=== PATIENT | female | born 1940 | race Two or more races ===

== ENCOUNTER 2024-07-07 18:03 | Inpatient (IN) | payer OTHER ==
[~2024-07-07] VITALS: Ht 157.5 cm; Wt 77.1 kg
--- NOTE | 2024-07-07 18:54 | NUR ---
SE LLAMA PACIENTE Y LA MISMA NO CONTESTA
--- NOTE | 2024-07-07 19:06 | NUR ---
HIJO REFIERE QUE LA PACIENTE LLEVA DEBIL DE LAS PIERNAS DESDE [place]
[2024-07-07] MEDS ORDERED: MEMANTINE HCL10 MG PO (19:07)
[2024-07-07] MEDS ORDERED: ATORVASTATIN CA20 MG PO (19:07)
[2024-07-07] MEDS ORDERED: FOLIC ACID1 MG PO (19:07)
[2024-07-07] MEDS ORDERED: GLIPIZIDE10 MG PO (19:07)
[2024-07-07] MEDS ORDERED: METFORMIN HCL1000 M3 PO (19:08)
[2024-07-07] MEDS ORDERED: LEVOTHYROXINE88 MCG PO (19:08)
[2024-07-07] MEDS ORDERED: FUROsemide 40 MG/4 ML VIAL IV ONE (19:30)
[2024-07-07] MEDS ORDERED: LEVALBUTEROL HCL 1.25 MG/3 ML SOLUTION IH SCH (19:45)
[2024-07-07] MEDS ORDERED: IPRATROPIUM BROMIDE 0.5 MG/2.5 ML AMPUL.NEB IH SCH (19:45)
[2024-07-07] MEDS ORDERED: FAMOTIDINE/PF 20 MG in 0.9 % SODIUM CHLORIDE 8 ML IV PUSH ONE (19:45)
--- NOTE | 2024-07-07 20:33 | NUR ---
PACIENTE ALERTA Y ORIENTADA X3 EN COMPANIA DE FAMILIAR. SE EDUCA A FAMILIAR Y A PACIENTE SOBRE PROCESO DE DEISI DE MUESTRAS, CANALIZACION Y ADMINISTRACION DE MEDICAMENTOS, REFIERE ENTENDER. SE EJECUTAN ORDENES BAJO MEDIDAS ASEPTICAS.
[2024-07-07 20:41] LABS: HEMATOCRIT 32.4 % (36.0-45.00); HEMOGLOBIN 11.1 g/dL (12.0-15.00); MEAN CORPUSCULAR HEMOGLOBIN 27.8 pg (27.00-32.0); MEAN CORPUSCULAR HGB CONC 34.4 g/dl (32.0-36.0); PLATELET COUNT 241 K/uL (150-450); RED CELL DISTRIBUTION WIDTH 15.8 % (11.5-14.5)
[2024-07-07] MEDS ORDERED: IPRATROPIUM BROMIDE 0.5 MG/2.5 ML AMPUL.NEB IH ONE (20:55)
[2024-07-07] MEDS ORDERED: LEVALBUTEROL HCL 1.25 MG/3 ML SOLUTION IH ONE (20:55)
[2024-07-07 21:08] LABS: BILIRUBIN TOTAL 0.47 mg/dL (0.3-1.2); CALCIUM 9.1 mg/dL (8.5-10.1); CREATININE SERUM 0.66 mg/dL (0.55-1.02); GFR 85.12; GLOBULINA 4.8 G/DL (2.4-3.5); POTASSIUM 3.31 mEq/L (3.5-5.1); TOTAL PROTEIN 7.8 gm/dL (6.4-8.2)
[2024-07-07] MEDS ORDERED: FUROsemide 40 MG/4 ML VIAL ONE (21:20)
[2024-07-07] MEDS ORDERED: FAMOTIDINE/PF 20 MG/2 ML VIAL ONE (21:20)
[2024-07-07 21:28] LABS: ABG pCO2 34.6 mmHg (35-45); BASE EXCESS 3.5 mmol/l; BICARBONATE 26.4 mmol/l (23-25); SaO2 92.6 %; Tco2 27.4 mmol/l
[2024-07-07 21:29] LABS: ABG PO2 58.2 mmHg (80-100); allen test SATISFACTORY; o2 32 %; puncture site RADIAL LEFT
[2024-07-07 21:32] LABS: URINE APPEARANCE Cloudy; URINE BILIRRUBIN Negative (NEGATIVE); URINE BLOOD Trace; URINE COLOR Yellow; URINE KETONE Negative (NEGATIVE); URINE LEUKOCYTE Small; URINE NITRATE Negative; URINE UROBILINOGEN 0.2 E.U./dl
[2024-07-07 21:36] LABS: URINE EPITHELIAL CELLS 6.3 uL (0.0-38.8); URINE RBC 9.5 uL (0.0-20.8); URINE WBC 1030.3 uL (0.0-23.2)
[2024-07-07 22:00] LABS: URINE BACTERIA > 9821.5 uL (0.0-1933); URINE CAST 0.58 uL (0.0-1.40); URINE GLUCOSE >=1000 MG/DL (NEGATIVE); URINE PROTEIN 100 (NEGATIVE)
[2024-07-07 22:03] LABS: URINE YEAST FEW /hpf
[2024-07-07 22:05] LABS: D DIMER 2.42 MG/L; PARTIAL THROMBOPLASTIN TIME 30.2 SECONDS (22.0-34.0)
[2024-07-07 22:08] LABS: INR 1.15; PROTHROMBIN TIME 12.4 SECONDS (9.0-11.5)
[2024-07-07] MEDS ORDERED: LORazepam 1 MG TABLET PO ONE (23:30)
[2024-07-07] MEDS ORDERED: LORazepam 2 MG/ML VIAL IV ONE (23:50)
[2024-07-07] MEDS ORDERED: LORazepam 2 MG/ML DISP.SYRIN ONE (23:56)
[2024-07-08] MEDS ORDERED: IPRATROPIUM BROMIDE 0.5 MG/2.5 ML AMPUL.NEB IH SCH (01:19)
[2024-07-08] MEDS ORDERED: CEFTRIAXONE SODIUM 2,000 MG in 0.9 % SODIUM CHLORIDE 100 ML IV SCH (01:21)
[2024-07-08] MEDS ORDERED: AZITHROMYCIN 500 MG in DEXTROSE 5 % IN WATER 250 ML IV SCH (01:21)
[2024-07-08] MEDS ORDERED: 0.9 % SODIUM CHLORIDE 1,000 ML IV SCH (01:30)
[2024-07-08] MEDS ORDERED: METHYLPREDNISOLONE SOD SUCC 125 MG VIAL IV ONE (01:30)
[2024-07-08] MEDS ORDERED: ACETAMINOPHEN 500 MG GEL..CAP PO PRN (01:30)
[2024-07-08] MEDS ORDERED: DEXTROSE 50 % IN WATER 0.5 G/ML DISP.SYRIN IV PRN (01:30)
[2024-07-08] MEDS ORDERED: INSULIN LISPRO 1,000 UNIT/10 ML UNITS SUBCUTANEO PRN (01:30)
[2024-07-08] MEDS ORDERED: LEVALBUTEROL HCL 1.25 MG/3 ML SOLUTION IH SCH (02:00)
[2024-07-08] MEDS ORDERED: CEFTRIAXONE SODIUM 2,000 MG VIAL ONE (04:35)
[2024-07-08] MEDS ORDERED: AZITHROMYCIN 500 MG VIAL IV ONE (04:35)
[2024-07-08] MEDS ORDERED: METHYLPREDNISOLONE SOD SUCC 40 MG VIAL ONE (04:35)
[2024-07-08] MEDS ORDERED: LEVOTHYROXINE SODIUM 88 MCG TABLET PO SCH (06:00)
[2024-07-08 08:00] VITALS: BP 145/80; O2SAT 91
[2024-07-08] MEDS ORDERED: HALOPERIDOL LACTATE 5 MG/ML AMPUL IM PRN (08:00)
[2024-07-08] MEDS ORDERED: METOPROLOL SUCCINATE 25 MG TAB.SR.24H PO SCH (09:00)
[2024-07-08] MEDS ORDERED: FUROsemide 20 MG/2 ML VIAL IV SCH (09:00)
[2024-07-08] MEDS ORDERED: LOSARTAN POTASSIUM 50 MG TABLET PO SCH (09:00)
[2024-07-08] MEDS ORDERED: ENOXAPARIN SODIUM 40 MG/0.4 ML SYRINGE SUBCUTANEO SCH (09:00)
[2024-07-08 09:32] VITALS: O2SAT 93
[2024-07-08 16:46] VITALS: O2SAT 90
[2024-07-08] MEDS ORDERED: SIMVASTATIN 20 MG TABLET PO SCH (17:00)
[2024-07-08 17:11] VITALS: BP 156/74
[2024-07-08 20:36] VITALS: O2SAT 90
[2024-07-09] VITALS (7 sets, daily range): BP systolic 167–187; BP diastolic 75–90; O2SAT 90–96
[2024-07-09] MEDS ORDERED: INSULIN NPH HUMAN ISOPHANE 1,000 UNITS/10 ML UNITS SUBCUTANEO SCH (08:00)
[2024-07-09 08:38] LABS: HEMATOCRIT 33.6 % (36.0-45.00); HEMOGLOBIN 11.7 g/dL (12.0-15.00); MEAN CELL VOLUME 80.6 fL (80.00-100.00); MEAN CORPUSCULAR HEMOGLOBIN 28.1 pg (27.00-32.0); MEAN CORPUSCULAR HGB CONC 34.9 g/dl (32.0-36.0); PLATELET COUNT 275 K/uL (150-450); RED BLOOD COUNT 4.17 M/uL (4.00-6.00); RED CELL DISTRIBUTION WIDTH 15.6 % (11.5-14.5)
[2024-07-09] MEDS ORDERED: AZITHROMYCIN 500 MG in 0.9 % SODIUM CHLORIDE 250 ML IV SCH (09:00)
[2024-07-09 09:19] LABS: ALBUMIN 2.8 gm/dL (3.4-5.0); BILIRUBIN TOTAL 0.42 mg/dL (0.3-1.2); CALCIUM 8.9 mg/dL (8.5-10.1); CREATININE SERUM 0.58 mg/dL (0.55-1.02); GFR 98.8; GLOBULINA 4.5 G/DL (2.4-3.5); PHOSPHOROUS 2.7 mg/dL (2.5-4.9); POTASSIUM 3.18 mEq/L (3.5-5.1); TOTAL PROTEIN 7.3 gm/dL (6.4-8.2)
[2024-07-09 09:31] LABS: C-REACTIVE PROTEIN 10.7 MG/DL (0.00-0.29); MAGNESIUM 1.4 mg/dL (1.8-2.4)
[2024-07-09] MEDS ORDERED: INSULIN NPH HUMAN ISOPHANE 1,000 UNITS/10 ML UNITS SUBCUTANEO STA (21:13)
[2024-07-09] MEDS ORDERED: INSULIN NPH HUMAN ISOPHANE 1,000 UNITS/10 ML UNITS SUBCUTANEO ONE (21:16)
[2024-07-10] VITALS (10 sets, daily range): BP systolic 160–185; BP diastolic 70–90; O2SAT 90–96
[2024-07-10] MEDS ORDERED: INSULIN LISPRO 1,000 UNIT/10 ML UNITS SUBCUTANEO SCH (08:00)
[2024-07-10] MEDS ORDERED: INSULIN GLARGINE,HUM.REC.ANLOG 1,000 UNITS/10 ML UNITS SUBCUTANEO SCH (09:00)
[2024-07-10] MEDS ORDERED: LOSARTAN POTASSIUM 100 MG TABLET PO SCH (09:00)
[2024-07-10 09:43] LABS: ABG PH 7.501 (7.35-7.45); ABG pCO2 41.3 mmHg (35-45)
[2024-07-10 09:44] LABS: ABG PO2 47.4 mmHg (80-100); BASE EXCESS 7.6 mmol/l; BICARBONATE 31.5 mmol/l (23-25); SaO2 87.8 %; Tco2 32.8 mmol/l; allen test SATISFACTORY; o2 21 %; puncture site RADIAL LEFT
[2024-07-10] MEDS ORDERED: AZITHROMYCIN 500 MG VIAL IV SCH (12:00)
[2024-07-10 12:33] LABS: URINE APPEARANCE Clear; URINE BILIRRUBIN Negative (NEGATIVE); URINE BLOOD Large; URINE COLOR Yellow; URINE GLUCOSE Negative (NEGATIVE); URINE KETONE Negative (NEGATIVE); URINE LEUKOCYTE Negative; URINE NITRATE Negative; URINE UROBILINOGEN 0.2 E.U./dl
[2024-07-10 12:34] LABS: URINE BACTERIA 34.2 uL (0.0-1933); URINE EPITHELIAL CELLS 11.2 uL (0.0-38.8); URINE RBC 1291.2 uL (0.0-20.8); URINE WBC 38.4 uL (0.0-23.2)
[2024-07-10 12:35] LABS: URINE CAST 1.17 uL (0.0-1.40); URINE PROTEIN 300 (NEGATIVE)
[2024-07-10] MEDS ORDERED: AZITHROMYCIN 500 MG VIAL IV ONE (12:59)
[2024-07-10] MEDS ORDERED: ENALAPRILAT DIHYDRATE 2.5 MG/2 ML VIAL IV PRN (22:15)
[2024-07-10] MEDS ORDERED: ENALAPRILAT DIHYDRATE 1.25 MG/ML VIAL IV ONE (22:18)
[2024-07-11] VITALS (11 sets, daily range): BP systolic 160–190; BP diastolic 80–89; O2SAT 90–100
[2024-07-11] MEDS ORDERED: FUROsemide 20 MG/2 ML VIAL IV STA (07:33)
[2024-07-11] MEDS ORDERED: INSULIN GLARGINE,HUM.REC.ANLOG 1,000 UNITS/10 ML UNITS SUBCUTANEO SCH (09:00)
[2024-07-11] MEDS ORDERED: AMLODIPINE BESYLATE 5 MG TABLET PO SCH (09:00)
[2024-07-11] MEDS ORDERED: ENALAPRILAT DIHYDRATE 1.25 MG/ML VIAL IV PRN (10:30)
[2024-07-11] MEDS ORDERED: INSULIN LISPRO 1,000 UNIT/10 ML UNITS SUBCUTANEO SCH (12:00)
[2024-07-11] MEDS ORDERED: AZITHROMYCIN 500 MG VIAL IV ONE (12:57)
[2024-07-11 13:33] LABS: ABG PH 7.473 (7.35-7.45); ABG PO2 102.1 mmHg (80-100); ABG pCO2 41.2 mmHg (35-45); BASE EXCESS 5.4 mmol/l; BICARBONATE 29.5 mmol/l (23-25); SaO2 98.3 %; Tco2 30.7 mmol/l
[2024-07-11 13:34] LABS: allen test SATISFACTORY; o2 100 %; puncture site RADIAL LEFT
[2024-07-11] MEDS ORDERED: PIPERACILLIN/TAZOBACTAM SODIUM 3.375 GM in DEXTROSE 5 % IN WATER 100 ML IV SCH (18:00)
[2024-07-12] VITALS (11 sets, daily range): BP systolic 140–186; BP diastolic 60–82; O2SAT 90–100
[2024-07-12 06:36] LABS: HEMATOCRIT 34.4 % (36.0-45.00); HEMOGLOBIN 11.7 g/dL (12.0-15.00); MEAN CELL VOLUME 81.9 fL (80.00-100.00); MEAN CORPUSCULAR HEMOGLOBIN 27.8 pg (27.00-32.0); MEAN CORPUSCULAR HGB CONC 33.9 g/dl (32.0-36.0); PLATELET COUNT 302 K/uL (150-450); RED CELL DISTRIBUTION WIDTH 15.7 % (11.5-14.5)
[2024-07-12 07:09] LABS: ALBUMIN 2.6 gm/dL (3.4-5.0); ALKALINE PHOSPHATASE 74 U/L (50-136); ALT/SGPT 13 U/L (12-78); AST/SGOT 10 U/L (15-37); BILIRUBIN TOTAL 0.55 mg/dL (0.3-1.2); BLOOD UREA NITROGEN 34 mg/dL (7-18); BUN CREA RATIO 50 (7.0-25.0); CALCIUM 8.3 mg/dL (8.5-10.1); CARBON DIOXIDE 32 mEq/L (21-32); CHLORIDE 99 mmol/L (98-107); CREATININE SERUM 0.68 mg/dL (0.55-1.02); GFR 82.23; GLOBULINA 3.9 G/DL (2.4-3.5); GLUCOSE FASTING 191 mg/dL (65-100); OSMOLALITY SERUM 294 MOSM/KG (275-295); PHOSPHOKINASE CREATININE 35 U/L (26-192); PHOSPHOROUS 4.1 mg/dL (2.5-4.9); SODIUM 141 mmol/L (136-145); TOTAL PROTEIN 6.5 gm/dL (6.4-8.2)
[2024-07-12 08:41] LABS: ANION GAP 13 (10.0-20.0)
[2024-07-12 08:42] LABS: CKMB < 1.0 NG/ML (0.5-3.6); POTASSIUM 2.63 mEq/L (3.5-5.1)
[2024-07-12] MEDS ORDERED: AMLODIPINE BESYLATE 10 MG TABLET PO SCH (09:00)
[2024-07-12] MEDS ORDERED: POTASSIUM CHLORIDE IN WATER 40 MEQ/100 ML PIGGYBAG IV ONE (11:15)
[2024-07-12 15:58] LABS: CALCIUM 8.5 mg/dL (8.5-10.1); CHOL HDL RATIO 3.3 (0-5.0); CREATININE SERUM 0.58 mg/dL (0.55-1.02); GFR 98.8
[2024-07-12 15:59] LABS: POTASSIUM 2.97 mEq/L (3.5-5.1)
[2024-07-12] MEDS ORDERED: AA 4.25%/CAL/LYTES/DEXT 5% 1,000 ML PERIFERAL SCH (21:00)
[2024-07-13] VITALS (10 sets, daily range): BP systolic 140–150; BP diastolic 66–80; O2SAT 87–99
[2024-07-13] MEDS ORDERED: AZITHROMYCIN 500 MG VIAL IV ONE (06:28)
[2024-07-14] VITALS (10 sets, daily range): BP systolic 140–171; BP diastolic 70–82; O2SAT 91–99
[2024-07-14] MEDS ORDERED: AZITHROMYCIN 500 MG VIAL IV ONE (06:25)
[2024-07-14 07:56] LABS: HEMATOCRIT 29.4 % (36.0-45.00); MEAN CELL VOLUME 82.4 fL (80.00-100.00); MEAN CORPUSCULAR HEMOGLOBIN 28.1 pg (27.00-32.0); MEAN CORPUSCULAR HGB CONC 34.1 g/dl (32.0-36.0); PLATELET COUNT 313 K/uL (150-450); RED BLOOD COUNT 3.56 M/uL (4.00-6.00)
[2024-07-14 09:50] LABS: ABG PH 7.476 (7.35-7.45); ABG PO2 112.5 mmHg (80-100); ABG pCO2 49.4 mmHg (35-45); BASE EXCESS 10.3 mmol/l; BICARBONATE 35.6 mmol/l (23-25); SaO2 98.8 %; Tco2 37.1 mmol/l
[2024-07-14 09:51] LABS: allen test SATISFACTORY; o2 50 %; puncture site RADIAL RIGHT
[2024-07-14] MEDS ORDERED: hydrALAZINE HCL 50 MG TABLET PO SCH (11:14)
[2024-07-14] MEDS ORDERED: INSULIN NPH HUMAN ISOPHANE 1,000 UNITS/10 ML UNITS SUBCUTANEO STA (14:31)
[2024-07-14] MEDS ORDERED: INSULIN NPH HUMAN ISOPHANE 1,000 UNITS/10 ML UNITS SUBCUTANEO SCH (21:00)
[2024-07-15] VITALS (10 sets, daily range): BP systolic 136–160; BP diastolic 71–84; O2SAT 91–100
[2024-07-15] MEDS ORDERED: AZITHROMYCIN 500 MG VIAL IV ONE (07:31)
[2024-07-15] MEDS ORDERED: hydrALAZINE HCL 50 MG TABLET PO SCH (09:00)
[2024-07-15 11:58] LABS: HEMATOCRIT 34.2 % (36.0-45.00); HEMOGLOBIN 11.6 g/dL (12.0-15.00); MEAN CELL VOLUME 81.1 fL (80.00-100.00); MEAN CORPUSCULAR HEMOGLOBIN 27.4 pg (27.00-32.0); MEAN CORPUSCULAR HGB CONC 33.7 g/dl (32.0-36.0); PLATELET COUNT 394 K/uL (150-450); RED BLOOD COUNT 4.22 M/uL (4.00-6.00); RED CELL DISTRIBUTION WIDTH 15.8 % (11.5-14.5)
[2024-07-15 12:46] LABS: CALCIUM 9.2 mg/dL (8.5-10.1); CREATININE SERUM 0.44 mg/dL (0.55-1.02); GFR 135.9; POTASSIUM 3.14 mEq/L (3.5-5.1)
[2024-07-15] MEDS ORDERED: INSULIN NPH HUMAN ISOPHANE 1,000 UNITS/10 ML UNITS SUBCUTANEO SCH (13:00)
[2024-07-16] VITALS (8 sets, daily range): BP systolic 134–150; BP diastolic 73–92; O2SAT 90–98
[2024-07-16] MEDS ORDERED: INSULIN NPH HUMAN ISOPHANE 1,000 UNITS/10 ML UNITS SUBCUTANEO SCH (05:00)
[2024-07-16] MEDS ORDERED: AZITHROMYCIN 500 MG VIAL IV ONE (07:44)
[2024-07-16] MEDS ORDERED: POTASSIUM CHLORIDE 20MEQ/100ML H2O PB IV NR (08:00)
[2024-07-16 11:37] LABS: ABG PH 7.486 (7.35-7.45); ABG pCO2 44.1 mmHg (35-45); BASE EXCESS 8.1 mmol/l; BICARBONATE 32.6 mmol/l (23-25); SaO2 92.7 %; Tco2 33.9 mmol/l
[2024-07-16 11:38] LABS: allen test SATISFACTORY; o2 21 %; puncture site RADIAL LEFT
[2024-07-17 00:18] VITALS: O2SAT 94
[2024-07-17 00:45] VITALS: BP 120/71; O2SAT 94
[2024-07-17 06:15] VITALS: O2SAT 96
[2024-07-17 08:00] VITALS: BP 143/76; O2SAT 100
[2024-07-17 10:02] VITALS: O2SAT 95
[2024-07-17 16:00] VITALS: BP 134/80; O2SAT 93
[2024-07-18] VITALS: BP 145/83; O2SAT 98
[2024-07-18] MEDS ORDERED: POTASSIUM CHLORIDE 10 MEQ CAPSULE PO STA (07:50)
[2024-07-18] MEDS ORDERED: INSULIN GLARGINE,HUM.REC.ANLOG 1,000 UNITS/10 ML UNITS SUBCUTANEO STA (09:33)
[2024-07-19] MEDS ORDERED: INSULIN GLARGINE,HUM.REC.ANLOG 1,000 UNITS/10 ML UNITS SUBCUTANEO SCH (09:00)
[2024-07-22 13:37] LABS: ABG PO2 58.4 mmHg (80-100)
== END 2024-07-18 13:35 | disposition home or self-care (01) | DRG 193 ==
LOC: ER 18:06 → MEDJ 07-08 01:25 → SURG 07-08 01:25 → MEDJ 07-08 14:48 → SURG 07-12 14:23 → SURH 07-12 14:38 → SURG 07-12 14:45
PROVIDERS: General Practice; Internal Medicine; Internal Medicine Infectious Disease; ADMIT Internal Medicine; ATTEND Internal Medicine
PROC: 5A0945A Assistance with Respiratory Ventilation, 24-96 Consecutive Hours, High Flow/Velocity Cannula (ICD-10-PCS; principal; 2024-07-07)
PROC: B020ZZZ Computerized Tomography (CT Scan) of Brain (ICD-10-PCS; 2024-07-07)
PROC: B32TZZZ Computerized Tomography (CT Scan) of Left Pulmonary Artery (ICD-10-PCS; 2024-07-07)
PROC: B32SZZZ Computerized Tomography (CT Scan) of Right Pulmonary Artery (ICD-10-PCS; 2024-07-07)
PROC: 4A12X4Z Monitoring of Cardiac Electrical Activity, External Approach (ICD-10-PCS; 2024-07-08)
PROC: B246ZZZ Ultrasonography of Right and Left Heart (ICD-10-PCS; 2024-07-08)
PROC: 3E0F7GC Introduction of Other Therapeutic Substance into Respiratory Tract, Via Natural or Artificial Opening (ICD-10-PCS; 2024-07-08)
PROC: BB24YZZ Computerized Tomography (CT Scan) of Bilateral Lungs using Other Contrast (ICD-10-PCS; 2024-07-11)
PROC: 3E0336Z Introduction of Nutritional Substance into Peripheral Vein, Percutaneous Approach (ICD-10-PCS; 2024-07-11)
PROC: 02HV33Z Insertion of Infusion Device into Superior Vena Cava, Percutaneous Approach (ICD-10-PCS; 2024-07-15)
PROC: 3E0436Z Introduction of Nutritional Substance into Central Vein, Percutaneous Approach (ICD-10-PCS; 2024-07-15)
PROC: 3E04329 Introduction of Other Anti-infective into Central Vein, Percutaneous Approach (ICD-10-PCS; 2024-07-15)
DX: J18.0 Bronchopneumonia, unspecified organism (principal); I50.33 Acute on chronic diastolic (congestive) heart failure; J96.01 Acute respiratory failure with hypoxia; E87.3 Alkalosis; I67.89 Other cerebrovascular disease; F02.811 Dementia in other diseases classified elsewhere, unspecified severity, with agitation; F05 Delirium due to known physiological condition; F01.511 Vascular dementia, unspecified severity, with agitation; I67.4 Hypertensive encephalopathy; J98.11 Atelectasis; G30.1 Alzheimer's disease with late onset; I11.0 Hypertensive heart disease with heart failure; E11.65 Type 2 diabetes mellitus with hyperglycemia; E87.6 Hypokalemia; G47.33 Obstructive sleep apnea (adult) (pediatric); E78.5 Hyperlipidemia, unspecified; E03.9 Hypothyroidism, unspecified; Z79.84 Long term (current) use of oral hypoglycemic drugs; Z95.0 Presence of cardiac pacemaker

== ENCOUNTER 2024-07-19 00:19 | Inpatient (IN) | payer OTHER ==
[~2024-07-19] VITALS: Ht 157.5 cm; Wt 284.9 kg
[~2024-07-19 00:19] MED LIST: ATORVASTATIN CA20 MG PO; FOLIC ACID1 MG PO; GLIPIZIDE10 MG PO; LEVOTHYROXINE88 MCG PO; MEMANTINE HCL10 MG PO; METFORMIN HCL1000 M3 PO
[2024-07-19] MEDS ORDERED: 0.9 % SODIUM CHLORIDE 1,000 ML IV STA (01:51)
[2024-07-19 02:20] LABS: HEMATOCRIT 32.1 % (36.0-45.00); HEMOGLOBIN 10.9 g/dL (12.0-15.00); MEAN CELL VOLUME 81.5 fL (80.00-100.00); MEAN CORPUSCULAR HEMOGLOBIN 27.7 pg (27.00-32.0); PLATELET COUNT 293 K/uL (150-450); RED BLOOD COUNT 3.94 M/uL (4.00-6.00); RED CELL DISTRIBUTION WIDTH 15.8 % (11.5-14.5)
[2024-07-19 02:27] LABS: ERYTHROCYTE SEDIMENTATION RATE 88 mm/hr
[2024-07-19 02:47] LABS: INR 1.13; PARTIAL THROMBOPLASTIN TIME 26.9 SECONDS (22.0-34.0); PROTHROMBIN TIME 12.2 SECONDS (9.0-11.5)
[2024-07-19 02:51] LABS: ALBUMIN 2.9 gm/dL (3.4-5.0); BILIRUBIN TOTAL 0.33 mg/dL (0.3-1.2); CREATININE SERUM 0.63 mg/dL (0.55-1.02); GFR 89.81; POTASSIUM 3.26 mEq/L (3.5-5.1); TOTAL PROTEIN 6.9 gm/dL (6.4-8.2)
[2024-07-19 02:53] LABS: ABG PH 7.483 (7.35-7.45); ABG pCO2 44.1 mmHg (35-45); BASE EXCESS 7.8 mmol/l; BICARBONATE 32.3 mmol/l (23-25); SaO2 91.5 %; Tco2 33.6 mmol/l
[2024-07-19 02:56] LABS: ABG PO2 55.6 mmHg (80-100); allen test SATISFACTORY; o2 21 %; puncture site RADIAL RIGHT
[2024-07-19 04:20] LABS: PH,URINE 6.5 (5.0-8.0); URINE APPEARANCE Clear; URINE BILIRRUBIN Negative (NEGATIVE); URINE BLOOD Negative; URINE COLOR Yellow; URINE KETONE Negative (NEGATIVE); URINE LEUKOCYTE Trace; URINE NITRATE Negative; URINE PROTEIN 30 (NEGATIVE); URINE UROBILINOGEN 0.2 E.U./dl
[2024-07-19 04:24] LABS: URINE BACTERIA 90.5 uL (0.0-1933); URINE EPITHELIAL CELLS 19.6 uL (0.0-38.8); URINE WBC 149.7 uL (0.0-23.2)
[2024-07-19 04:41] LABS: URINE CAST 0.29 uL (0.0-1.40); URINE GLUCOSE >=1000 MG/DL (NEGATIVE)
[2024-07-19] MEDS ORDERED: LOSARTAN POTASSIUM 50 MG TABLET PO SCH (13:49)
[2024-07-19] MEDS ORDERED: LEVOTHYROXINE SODIUM 88 MCG TABLET PO ONE (14:00)
[2024-07-19] MEDS ORDERED: LABETALOL HCL 200 MG/40 ML VIAL IV ONE (16:45)
[2024-07-19] MEDS ORDERED: LABETALOL HCL 100 MG/20 ML ML ONE (17:00)
[2024-07-20] MEDS ORDERED: LEVOTHYROXINE SODIUM 88 MCG TABLET PO SCH (10:03)
[2024-07-20] MEDS ORDERED: ACETAMINOPHEN 500 MG GEL..CAP PO PRN (16:00)
[2024-07-20] MEDS ORDERED: DEXTROSE 50 % IN WATER 0.5 G/ML DISP.SYRIN IV PRN (16:00)
[2024-07-20] MEDS ORDERED: 0.9 % SODIUM CHLORIDE 1,000 ML IV SCH (16:00)
[2024-07-20] MEDS ORDERED: ONDANSETRON HCL 4 MG in 0.9 % SODIUM CHLORIDE 50 ML IV PRN (16:00)
[2024-07-20] MEDS ORDERED: INSULIN LISPRO 1,000 UNIT/10 ML UNITS SUBCUTANEO PRN (16:00)
[2024-07-20 16:26] VITALS: BP 107/87; O2SAT 97
[2024-07-20] MEDS ORDERED: MEMANTINE HCL 10 MG TABLET PO SCH (17:00)
[2024-07-20] MEDS ORDERED: IPRATROPIUM BROMIDE 0.5 MG/2.5 ML AMPUL.NEB IH SCH (17:00)
[2024-07-20] MEDS ORDERED: NIFEDIPINE 30 MG TAB.SA.OSM PO SCH (17:00)
[2024-07-20 17:24] VITALS: BP 153/69; O2SAT 94
[2024-07-20 23:42] VITALS: BP 137/75; O2SAT 91
[2024-07-21 08:31] VITALS: BP 140/70; O2SAT 91
[2024-07-21] MEDS ORDERED: ENOXAPARIN SODIUM 40 MG/0.4 ML SYRINGE SUBCUTANEO SCH (09:00)
[2024-07-21] MEDS ORDERED: FAMOTIDINE/PF 20 MG in 0.9 % SODIUM CHLORIDE 8 ML IV PUSH SCH (09:00)
[2024-07-21] MEDS ORDERED: ATORVASTATIN CALCIUM 20 MG TABLET PO SCH (09:00)
[2024-07-21 12:05] LABS: HEMATOCRIT 33.2 % (36.0-45.00); HEMOGLOBIN 11.2 g/dL (12.0-15.00); MEAN CELL VOLUME 81.8 fL (80.00-100.00); MEAN CORPUSCULAR HEMOGLOBIN 27.5 pg (27.00-32.0); MEAN CORPUSCULAR HGB CONC 33.7 g/dl (32.0-36.0); PLATELET COUNT 277 K/uL (150-450); RED BLOOD COUNT 4.06 M/uL (4.00-6.00)
[2024-07-21 12:58] LABS: ALBUMIN 2.7 gm/dL (3.4-5.0); BILIRUBIN TOTAL 0.27 mg/dL (0.3-1.2); CALCIUM 8.9 mg/dL (8.5-10.1); CREATININE SERUM 0.49 mg/dL (0.55-1.02); GFR 120.03; GLOBULINA 3.7 G/DL (2.4-3.5); POTASSIUM 3.37 mEq/L (3.5-5.1); TOTAL PROTEIN 6.4 gm/dL (6.4-8.2)
[2024-07-21 16:05] VITALS: BP 126/75; O2SAT 88
[2024-07-22 00:30] VITALS: BP 139/84; O2SAT 91
[2024-07-22 08:56] VITALS: BP 147/69; O2SAT 92
[2024-07-22 16:39] VITALS: BP 146/71; O2SAT 90
[2024-07-23] VITALS: BP 126/71; O2SAT 85
[2024-07-23 08:00] VITALS: BP 124/60; O2SAT 91
[2024-07-23 16:00] VITALS: BP 152/80; O2SAT 94
[2024-07-24 01:27] VITALS: BP 133/80; O2SAT 91
[2024-07-24 08:31] VITALS: BP 142/73; O2SAT 90
[2024-07-24] MEDS ORDERED: NA PHOS,M-B/NA PHOS,DI-BA 1 BOTTLE ENEMA RECTAL STA (13:13)
[2024-07-24 16:00] VITALS: BP 119/78; O2SAT 90
[2024-07-25] VITALS: BP 145/78; O2SAT 95
[2024-07-25 08:00] VITALS: BP 124/69
[2024-07-25] MEDS ORDERED: INSULIN GLARGINE,HUM.REC.ANLOG 1,000 UNITS/10 ML UNITS SUBCUTANEO SCH (09:00)
[2024-07-25 12:05] LABS: ABG PH 7.479 (7.35-7.45); ABG pCO2 36.9 mmHg (35-45); BASE EXCESS 3.4 mmol/l; BICARBONATE 26.8 mmol/l (23-25); SaO2 91.4 %; Tco2 27.9 mmol/l
[2024-07-25 12:10] LABS: HEMATOCRIT 35.6 % (36.0-45.00); HEMOGLOBIN 12.1 g/dL (12.0-15.00); MEAN CELL VOLUME 82.1 fL (80.00-100.00); MEAN CORPUSCULAR HGB CONC 34.1 g/dl (32.0-36.0); PLATELET COUNT 291 K/uL (150-450); RED BLOOD COUNT 4.34 M/uL (4.00-6.00); RED CELL DISTRIBUTION WIDTH 17.1 % (11.5-14.5)
[2024-07-25 12:15] LABS: ABG PO2 56.2 mmHg (80-100); allen test SATISFACTORY; o2 32 %; puncture site RADIAL RIGHT
[2024-07-25 13:07] LABS: BILIRUBIN TOTAL 0.35 mg/dL (0.3-1.2); CALCIUM 9.8 mg/dL (8.5-10.1); CREATININE SERUM 0.64 mg/dL (0.55-1.02); GFR 88.19; GLOBULINA 3.8 G/DL (2.4-3.5); POTASSIUM 3.51 mEq/L (3.5-5.1); TOTAL PROTEIN 6.8 gm/dL (6.4-8.2)
[2024-07-25 13:57] LABS: ABG PH 7.489 (7.35-7.45); ABG PO2 60.5 mmHg (80-100); ABG pCO2 36.2 mmHg (35-45); BASE EXCESS 3.7 mmol/l; BICARBONATE 26.9 mmol/l (23-25); SaO2 93.1 %
[2024-07-25 14:00] LABS: allen test SATISFACTORY; o2 36 %; puncture site RADIAL RIGHT
[2024-07-25 16:00] VITALS: BP 118/76; O2SAT 93
[2024-07-26] VITALS: BP 129/70; O2SAT 97
[2024-07-26 08:00] VITALS: BP 137/76
[2024-07-26] MEDS ORDERED: INSULIN LISPRO 1,000 UNIT/10 ML UNITS SUBCUTANEO SCH (08:00)
[2024-07-26 16:00] VITALS: BP 143/77; O2SAT 93
[2024-07-26 17:30] VITALS: O2SAT 88
[2024-07-26 19:00] VITALS: O2SAT 97
[2024-07-26] MEDS ORDERED: LEVALBUTEROL HCL 0.63 MG/3 ML SOLUTION IH SCH (19:06)
[2024-07-27] VITALS (7 sets, daily range): BP systolic 113–154; BP diastolic 55–83; O2SAT 94–100
[2024-07-27] MEDS ORDERED: LEVOTHYROXINE SODIUM 88 MCG TABLET PO SCH (06:00)
[2024-07-27 10:05] LABS: HEMATOCRIT 35.2 % (36.0-45.00); HEMOGLOBIN 11.7 g/dL (12.0-15.00); MEAN CELL VOLUME 82.6 fL (80.00-100.00); MEAN CORPUSCULAR HEMOGLOBIN 27.6 pg (27.00-32.0); MEAN CORPUSCULAR HGB CONC 33.4 g/dl (32.0-36.0); PLATELET COUNT 307 K/uL (150-450); RED BLOOD COUNT 4.26 M/uL (4.00-6.00); RED CELL DISTRIBUTION WIDTH 17.2 % (11.5-14.5)
[2024-07-27 10:14] LABS: CALCIUM 9.3 mg/dL (8.5-10.1); CREATININE SERUM 0.8 mg/dL (0.55-1.02); GFR 68.17; POTASSIUM 3.29 mEq/L (3.5-5.1)
[2024-07-27] MEDS ORDERED: FUROsemide 20 MG/2 ML VIAL ONE (10:30)
[2024-07-27] MEDS ORDERED: FUROsemide 20 MG/2 ML VIAL IV STA (10:33)
[2024-07-27 10:35] LABS: ABG PH 7.439 (7.35-7.45); ABG pCO2 36.6 mmHg (35-45); BASE EXCESS 0.5 mmol/l; BICARBONATE 24.3 mmol/l (23-25); SaO2 92.7 %; Tco2 25.4 mmol/l
[2024-07-27 10:36] LABS: allen test SATISFACTORY; o2 50 %; puncture site RADIAL RIGHT
[2024-07-27] MEDS ORDERED: QUETIAPINE FUMARATE 25 MG TABLET PO NR (10:45)
[2024-07-27] MEDS ORDERED: FAMOTIDINE/PF 20 MG/2 ML VIAL IV NR (12:15)
[2024-07-27] MEDS ORDERED: POTASSIUM BICARBONATE/CIT AC 25 MEQ TABLET.EFF PO SCH (17:00)
[2024-07-27 18:01] LABS: T4 FREE 1.37 NG/ML (0.76-1.46); TSH 2.63 uIU/mL (0.358-3.74)
[2024-07-27] MEDS ORDERED: FAMOTIDINE/PF 20 MG/2 ML VIAL IV SCH (21:00)
[2024-07-28] VITALS (7 sets, daily range): BP systolic 118–149; BP diastolic 57–80; O2SAT 91–100
[2024-07-28 08:00] LABS: CREATININE SERUM 0.48 mg/dL (0.55-1.02); GFR 122.92; POTASSIUM 3.78 mEq/L (3.5-5.1)
[2024-07-28 08:54] LABS: ABG PH 7.442 (7.35-7.45); ABG pCO2 42.8 mmHg (35-45); BASE EXCESS 3.9 mmol/l; BICARBONATE 28.5 mmol/l (23-25); SaO2 99.1 %; Tco2 29.9 mmol/l
[2024-07-28] MEDS ORDERED: INSULIN GLARGINE,HUM.REC.ANLOG 1,000 UNITS/10 ML UNITS SUBCUTANEO SCH (09:00)
[2024-07-28] MEDS ORDERED: MEMANTINE HCL 10 MG TABLET PO SCH (09:00)
[2024-07-28] MEDS ORDERED: FUROsemide 20 MG/2 ML VIAL IV SCH (09:00)
[2024-07-28] MEDS ORDERED: CHLORHEXIDINE GLUCONATE 120 ML BOTTLE TOP ONE (10:00)
[2024-07-28] MEDS ORDERED: POLYETHYLENE GLYCOL 3350 17 GM BLIST.PACK PO SCH (13:43)
[2024-07-28 15:32] LABS: allen test SATISFACTORY; o2 50 %; puncture site RADIAL RIGHT
[2024-07-29 06:51] LABS: HEMATOCRIT 32.9 % (36.0-45.00); HEMOGLOBIN 11.2 g/dL (12.0-15.00); MEAN CELL VOLUME 82.9 fL (80.00-100.00); MEAN CORPUSCULAR HEMOGLOBIN 28.2 pg (27.00-32.0); PLATELET COUNT 256 K/uL (150-450); RED BLOOD COUNT 3.97 M/uL (4.00-6.00); RED CELL DISTRIBUTION WIDTH 17.2 % (11.5-14.5)
[2024-07-29 07:16] VITALS: BP 129/61; O2SAT 96
[2024-07-29 07:32] LABS: BILIRUBIN TOTAL 0.65 mg/dL (0.3-1.2); CALCIUM 9.4 mg/dL (8.5-10.1); CREATININE SERUM 0.59 mg/dL (0.55-1.02); GFR 96.87; POTASSIUM 4.06 mEq/L (3.5-5.1)
[2024-07-29 10:22] LABS: ABG pCO2 40.7 mmHg (35-45); BASE EXCESS 5.6 mmol/l; BICARBONATE 29.6 mmol/l (23-25); SaO2 91.5 %; Tco2 30.9 mmol/l
[2024-07-29 10:26] LABS: o2 21 %
[2024-07-29 10:27] LABS: allen test SATISFACTORY; puncture site RADIAL RIGHT
[2024-07-29] MEDS ORDERED: INSULIN LISPRO 1,000 UNIT/10 ML UNITS SUBCUTANEO SCH (12:00)
[2024-07-29 12:01] VITALS: BP 150/67; O2SAT 94
[2024-07-29 15:10] VITALS: BP 137/70; O2SAT 94
[2024-07-29 18:35] VITALS: BP 135/62; O2SAT 89
[2024-07-29 20:26] VITALS: O2SAT 91
[2024-07-30] VITALS (8 sets, daily range): BP systolic 119–151; BP diastolic 81–83; O2SAT 92–98
[2024-07-30 07:41] LABS: CALCIUM 9.2 mg/dL (8.5-10.1); CREATININE SERUM 0.63 mg/dL (0.55-1.02); GFR 89.81; POTASSIUM 4.11 mEq/L (3.5-5.1)
[2024-07-30] MEDS ORDERED: INSULIN LISPRO 1,000 UNIT/10 ML UNITS SUBCUTANEO SCH (08:00)
[2024-07-30] MEDS ORDERED: INSULIN GLARGINE,HUM.REC.ANLOG 1,000 UNITS/10 ML UNITS SUBCUTANEO SCH ×2 (09:00)
[2024-07-30 11:04] LABS: ABG PH 7.461 (7.35-7.45)
[2024-07-30 11:05] LABS: ABG PO2 94.4 mmHg (80-100); ABG pCO2 43.9 mmHg (35-45); BASE EXCESS 5.9 mmol/l; BICARBONATE 30.6 mmol/l (23-25); SaO2 97.9 %; Tco2 31.9 mmol/l
[2024-07-30 11:06] LABS: allen test SATISFACTORY; o2 50 %; puncture site RADIAL RIGHT
[2024-07-30] MEDS ORDERED: TYLENOL PM PO PRN (23:00)
[2024-07-31 00:29] VITALS: BP 140/70; O2SAT 99
[2024-07-31 08:15] VITALS: BP 140/72; O2SAT 100
[2024-07-31 09:52] VITALS: O2SAT 72
[2024-07-31] MEDS ORDERED: POLYETHYLENE GLYCOL 3350 17 GM BLIST.PACK PO STA (10:19)
[2024-07-31 16:53] VITALS: BP 112/63; O2SAT 98
[2024-07-31] MEDS ORDERED: FAMOtidine 20 MG TABLET PO SCH (21:00)
[2024-07-31] MEDS ORDERED: IPRATROPIUM BROMIDE 0.5 MG/2.5 ML AMPUL.NEB IH STA (23:04)
[2024-08-01 00:20] VITALS: BP 135/67; O2SAT 93
[2024-08-01] MEDS ORDERED: IPRATROPIUM BROMIDE 0.5 MG/2.5 ML AMPUL.NEB IH SCH (01:00)
[2024-08-01 05:59] VITALS: O2SAT 93
[2024-08-01] MEDS ORDERED: INSULIN LISPRO 1,000 UNIT/10 ML UNITS SUBCUTANEO SCH (08:00)
[2024-08-01] MEDS ORDERED: INSULIN GLARGINE,HUM.REC.ANLOG 1,000 UNITS/10 ML UNITS SUBCUTANEO SCH (09:00)
[2024-08-01 09:04] VITALS: BP 136/71; O2SAT 99
[2024-08-01 12:44] VITALS: O2SAT 98
[2024-08-01 17:00] VITALS: O2SAT 90
[2024-08-01 17:17] VITALS: BP 114/58; O2SAT 95
[2024-08-01 19:27] LABS: ABG PH 7.498 (7.35-7.45); ABG PO2 106.4 mmHg (80-100); ABG pCO2 34.4 mmHg (35-45); BASE EXCESS 3.3 mmol/l; BICARBONATE 26.1 mmol/l (23-25); SaO2 98.6 %; Tco2 27.2 mmol/l
[2024-08-01 20:07] LABS: allen test SATISFACTORY; o2 36 %; puncture site RADIAL LEFT
[2024-08-02] VITALS: BP 148/85; O2SAT 99
[2024-08-02 08:00] VITALS: BP 169/66; O2SAT 98
[2024-08-02 16:03] LABS: HEMATOCRIT 32.8 % (36.0-45.00); HEMOGLOBIN 11.2 g/dL (12.0-15.00); MEAN CELL VOLUME 81.3 fL (80.00-100.00); MEAN CORPUSCULAR HEMOGLOBIN 27.8 pg (27.00-32.0); MEAN CORPUSCULAR HGB CONC 34.2 g/dl (32.0-36.0); PLATELET COUNT 240 K/uL (150-450); RED BLOOD COUNT 4.03 M/uL (4.00-6.00); RED CELL DISTRIBUTION WIDTH 17.2 % (11.5-14.5)
[2024-08-02 16:28] LABS: ALBUMIN 3.1 gm/dL (3.4-5.0); BILIRUBIN TOTAL 0.44 mg/dL (0.3-1.2); CALCIUM 9.7 mg/dL (8.5-10.1); CREATININE SERUM 1.06 mg/dL (0.55-1.02); GFR 49.27; GLOBULINA 4.3 G/DL (2.4-3.5); POTASSIUM 3.74 mEq/L (3.5-5.1); TOTAL PROTEIN 7.4 gm/dL (6.4-8.2)
[2024-08-02 16:42] VITALS: BP 99/57; O2SAT 92
[2024-08-02] MEDS ORDERED: NA PHOS,M-B/NA PHOS,DI-BA 1 BOTTLE ENEMA RECTAL ONE (20:00)
[2024-08-02] MEDS ORDERED: INSULIN NPH HUMAN ISOPHANE 1,000 UNITS/10 ML UNITS SUBCUTANEO SCH (21:00)
[2024-08-03] VITALS (7 sets, daily range): BP systolic 126–157; BP diastolic 69–74; O2SAT 89–98
[2024-08-03] MEDS ORDERED: INSULIN LISPRO 1,000 UNIT/10 ML UNITS SUBCUTANEO SCH (08:00)
[2024-08-03] MEDS ORDERED: POLYETHYLENE GLYCOL 3350 17 GM BLIST.PACK PO SCH (09:00)
[2024-08-03] MEDS ORDERED: INSULIN GLARGINE,HUM.REC.ANLOG 1,000 UNITS/10 ML UNITS SUBCUTANEO SCH ×2 (09:00)
[2024-08-03] MEDS ORDERED: NA PHOS,M-B/NA PHOS,DI-BA 1 BOTTLE ENEMA RECTAL NR (10:00)
[2024-08-04] VITALS (9 sets, daily range): BP systolic 131–163; BP diastolic 64–77; O2SAT 86–97
[2024-08-04] MEDS ORDERED: INSULIN GLARGINE,HUM.REC.ANLOG 1,000 UNITS/10 ML UNITS SUBCUTANEO SCH (09:00)
[2024-08-04] MEDS ORDERED: LACTULOSE 20 G/30 ML BLIST.PACK PO SCH (09:00)
[2024-08-04] MEDS ORDERED: MINERAL OIL 30 ML BLIST.PACK PO SCH (09:00)
[2024-08-04] MEDS ORDERED: MAGNESIUM HYDROXIDE 30 ML BLIST.PACK PO SCH (09:00)
[2024-08-04 14:02] LABS: ABG PO2 61.9 mmHg (80-100); ABG pCO2 42.2 mmHg (35-45); BASE EXCESS 3.8 mmol/l; BICARBONATE 28.3 mmol/l (23-25); SaO2 92.6 %; Tco2 29.6 mmol/l
[2024-08-04 14:03] LABS: allen test SATISFACTORY; o2 32 %; puncture site RADIAL RIGHT
[2024-08-04 16:08] LABS: ABG PH 7.518 (7.35-7.45); ABG PO2 68.5 mmHg (80-100); ABG pCO2 37.5 mmHg (35-45); BASE EXCESS 6.7 mmol/l; BICARBONATE 29.8 mmol/l (23-25); SaO2 95.6 %; Tco2 30.9 mmol/l
[2024-08-04 16:14] LABS: allen test SATISFACTORY; o2 36 %; puncture site RADIAL RIGHT
[2024-08-05] VITALS (8 sets, daily range): BP systolic 118–133; BP diastolic 62–77; O2SAT 92–98
[2024-08-05] MEDS ORDERED: ACYCLOVIR 800 MG TABLET PO SCH (09:00)
[2024-08-05] MEDS ORDERED: CLOTRIMAZOLE 30 GM TUBE TOP SCH (19:03)
[2024-08-06] VITALS (9 sets, daily range): BP systolic 112–145; BP diastolic 62–78; O2SAT 87–99
[2024-08-06 06:33] LABS: HEMATOCRIT 31.6 % (36.0-45.00); MEAN CELL VOLUME 82.7 fL (80.00-100.00); MEAN CORPUSCULAR HEMOGLOBIN 27.7 pg (27.00-32.0); MEAN CORPUSCULAR HGB CONC 33.5 g/dl (32.0-36.0); RED BLOOD COUNT 3.82 M/uL (4.00-6.00); RED CELL DISTRIBUTION WIDTH 16.6 % (11.5-14.5)
[2024-08-06 06:53] LABS: HEMOGLOBIN 10.6 g/dL (12.0-15.00); PLATELET COUNT 168 K/uL (150-450)
[2024-08-06 06:56] LABS: ALBUMIN 2.8 gm/dL (3.4-5.0); BILIRUBIN TOTAL 0.3 mg/dL (0.3-1.2); CALCIUM 9.6 mg/dL (8.5-10.1); CREATININE SERUM 0.74 mg/dL (0.55-1.02); GFR 74.59; GLOBULINA 3.9 G/DL (2.4-3.5); POTASSIUM 4.62 mEq/L (3.5-5.1); TOTAL PROTEIN 6.7 gm/dL (6.4-8.2)
[2024-08-06] MEDS ORDERED: INSULIN GLARGINE,HUM.REC.ANLOG 1,000 UNITS/10 ML UNITS SUBCUTANEO SCH (09:00)
[2024-08-07 00:52] VITALS: O2SAT 96
[2024-08-07 08:20] VITALS: BP 129/68
[2024-08-07 16:00] VITALS: BP 158/77; O2SAT 94
[2024-08-07 16:55] VITALS: O2SAT 95
[2024-08-07 20:49] VITALS: O2SAT 91
[2024-08-08] VITALS (9 sets, daily range): BP systolic 126–149; BP diastolic 66–75; O2SAT 89–100
[2024-08-08 12:19] LABS: HEMATOCRIT 31.5 % (36.0-45.00); HEMOGLOBIN 10.7 g/dL (12.0-15.00); MEAN CORPUSCULAR HEMOGLOBIN 27.8 pg (27.00-32.0); MEAN CORPUSCULAR HGB CONC 33.9 g/dl (32.0-36.0); PLATELET COUNT 198 K/uL (150-450); RED BLOOD COUNT 3.84 M/uL (4.00-6.00)
[2024-08-08 12:43] LABS: ALBUMIN 2.9 gm/dL (3.4-5.0); BILIRUBIN TOTAL 0.44 mg/dL (0.3-1.2); CALCIUM 9.1 mg/dL (8.5-10.1); CREATININE SERUM 0.67 mg/dL (0.55-1.02); GFR 83.65; POTASSIUM 3.95 mEq/L (3.5-5.1); TOTAL PROTEIN 6.9 gm/dL (6.4-8.2)
[2024-08-08 12:50] LABS: C-REACTIVE PROTEIN 0.32 MG/DL (0.00-0.29)
[2024-08-09] VITALS (9 sets, daily range): BP systolic 123–145; BP diastolic 64–75; O2SAT 93–98
[2024-08-10] VITALS (10 sets, daily range): BP systolic 128–150; BP diastolic 64–76; O2SAT 90–99
[2024-08-10] MEDS ORDERED: DOCUSATE SODIUM 100MG CAP PO SCH (17:00)
[2024-08-11] VITALS (10 sets, daily range): BP systolic 123–150; BP diastolic 73–87; O2SAT 81–100
[2024-08-11] MEDS ORDERED: INSULIN LISPRO 1,000 UNIT/10 ML UNITS SUBCUTANEO SCH ×3 (08:00→17:00)
[2024-08-12] VITALS (8 sets, daily range): BP systolic 125–140; BP diastolic 69–93; O2SAT 89–100
[2024-08-12 13:44] LABS: ABG PH 7.447 (7.35-7.45); ABG PO2 66.4 mmHg (80-100); ABG pCO2 36.8 mmHg (35-45); BASE EXCESS 1.1 mmol/l; BICARBONATE 24.8 mmol/l (23-25); SaO2 93.8 %
[2024-08-12 13:51] LABS: allen test SATISFACTORY; o2 21 %; puncture site RADIAL LEFT
[2024-08-13 00:45] VITALS: BP 143/72; O2SAT 98
[2024-08-13 08:00] VITALS: BP 145/70; O2SAT 100
[2024-08-13 08:25] VITALS: O2SAT 97
[2024-08-13] MEDS ORDERED: HYDROCORTISONE 2.5% 20 GM TUBE TOP SCH (09:00)
[2024-08-13 12:57] VITALS: O2SAT 96
[2024-08-13 16:00] VITALS: BP 123/66; O2SAT 96
[2024-08-13 21:41] VITALS: O2SAT 83
[2024-08-14 06:02] VITALS: O2SAT 88
[2024-08-14 09:48] VITALS: O2SAT 98
[2024-08-14 14:19] VITALS: O2SAT 97
[2024-08-14 16:00] VITALS: BP 141/62; O2SAT 99
[2024-08-14 17:00] VITALS: O2SAT 97
[2024-08-14 21:00] VITALS: O2SAT 90
[2024-08-15] VITALS (8 sets, daily range): BP systolic 145–156; BP diastolic 73–76; O2SAT 95–100
[2024-08-15] MEDS ORDERED: INSULIN LISPRO 1,000 UNIT/10 ML UNITS SUBCUTANEO STA (20:34)
[2024-08-16 00:23] VITALS: O2SAT 100
[2024-08-16 01:27] VITALS: BP 139/62; O2SAT 100
[2024-08-16 05:50] VITALS: O2SAT 98
[2024-08-16 08:00] VITALS: BP 236/67; O2SAT 95
[2024-08-16 09:40] VITALS: O2SAT 97
[2024-08-16 13:39] VITALS: O2SAT 95
== END 2024-08-16 17:01 | disposition home or self-care (01) | DRG 71 ==
LOC: ER 00:22 → SURG 07-20 16:26 → O/R 07-24 09:19 → SURG 07-24 09:20 → SURH 07-26 12:44 → ICU 07-27 19:34 → SURG 07-29 18:12 → O/R 08-13 13:30 → SURG 08-13 13:32
PROVIDERS: Internal Medicine; Internal Medicine Critical Care Medicine; ADMIT Student in an Organized Health Care Education/Training Program; ATTEND Student in an Organized Health Care Education/Training Program
PROC: 4A12X4Z Monitoring of Cardiac Electrical Activity, External Approach (ICD-10-PCS; 2024-07-19)
PROC: 3E0F7GC Introduction of Other Therapeutic Substance into Respiratory Tract, Via Natural or Artificial Opening (ICD-10-PCS; 2024-07-21)
PROC: BB24ZZZ Computerized Tomography (CT Scan) of Bilateral Lungs (ICD-10-PCS; 2024-07-26)
PROC: B246ZZZ Ultrasonography of Right and Left Heart (ICD-10-PCS; 2024-07-26)
PROC: B54DZZZ Ultrasonography of Bilateral Lower Extremity Veins (ICD-10-PCS; 2024-07-26)
PROC: 5A09557 Assistance with Respiratory Ventilation, Greater than 96 Consecutive Hours, Continuous Positive Airway Pressure (ICD-10-PCS; principal; 2024-07-27)
PROC: B020ZZZ Computerized Tomography (CT Scan) of Brain (ICD-10-PCS; 2024-07-27)
DX: G93.49 Other encephalopathy (principal); F01.511 Vascular dementia, unspecified severity, with agitation; G40.89 Other seizures; Q21.19 Other specified atrial septal defect; J90 Pleural effusion, not elsewhere classified; J98.11 Atelectasis; F02.811 Dementia in other diseases classified elsewhere, unspecified severity, with agitation; Z68.43 Body mass index [BMI] 50.0-59.9, adult; I27.23 Pulmonary hypertension due to lung diseases and hypoxia; G47.33 Obstructive sleep apnea (adult) (pediatric); R09.02 Hypoxemia; A60.09 Herpesviral infection of other urogenital tract; E11.65 Type 2 diabetes mellitus with hyperglycemia; E11.649 Type 2 diabetes mellitus with hypoglycemia without coma; E88.09 Other disorders of plasma-protein metabolism, not elsewhere classified; K59.00 Constipation, unspecified; R91.1 Solitary pulmonary nodule; R05.9 Cough, unspecified; E66.09 Other obesity due to excess calories; I10 Essential (primary) hypertension; G30.9 Alzheimer's disease, unspecified; E03.9 Hypothyroidism, unspecified; E78.5 Hyperlipidemia, unspecified; Z95.0 Presence of cardiac pacemaker; Z78.1 Physical restraint status; Z74.01 Bed confinement status

== ENCOUNTER 2024-08-17 21:46 | Emergency (ER) | payer OTHER ==
[~2024-08-17] VITALS: Ht 167.6 cm; Wt 95.3 kg
[2024-08-17] MEDS ORDERED: PIPERACILLIN/TAZOBACTAM SODIUM 3.375 GM VIAL IV ONE (23:00)
[2024-08-17] MEDS ORDERED: FAMOtidine 10 MG/ML (4ML VIAL) IV ONE (23:15)
[2024-08-17 23:48] LABS: HEMATOCRIT 28.1 % (36.0-45.00); HEMOGLOBIN 9.5 g/dL (12.0-15.00); MEAN CELL VOLUME 82.9 fL (80.00-100.00); MEAN CORPUSCULAR HGB CONC 33.7 g/dl (32.0-36.0); PLATELET COUNT 209 K/uL (150-450); RED BLOOD COUNT 3.38 M/uL (4.00-6.00); RED CELL DISTRIBUTION WIDTH 17.5 % (11.5-14.5)
[2024-08-18 00:43] LABS: INR 1.11; PARTIAL THROMBOPLASTIN TIME 27.3 SECONDS (22.0-34.0)
[2024-08-18 00:51] LABS: ALBUMIN 3.1 gm/dL (3.4-5.0); BILIRUBIN TOTAL 0.19 mg/dL (0.3-1.2); CALCIUM 9.2 mg/dL (8.5-10.1); CREATININE SERUM 0.88 mg/dL (0.55-1.02); GFR 61.07; POTASSIUM 3.23 mEq/L (3.5-5.1); TOTAL PROTEIN 7.1 gm/dL (6.4-8.2)
[2024-08-18] MEDS ORDERED: ACETAMINOPHEN 500 MG GEL..CAP PO STA (01:53)
[2024-08-18 03:43] LABS: URINE APPEARANCE Clear; URINE BACTERIA 6.1 uL (0.0-1933); URINE BILIRRUBIN Negative (NEGATIVE); URINE BLOOD Negative; URINE COLOR Yellow; URINE GLUCOSE Negative (NEGATIVE); URINE KETONE Negative (NEGATIVE); URINE LEUKOCYTE Negative; URINE NITRATE Negative; URINE PROTEIN Negative (NEGATIVE); URINE UROBILINOGEN 0.2 E.U./dl
[2024-08-18 03:45] LABS: URINE CAST 0.14 uL (0.0-1.40); URINE RBC 1.7 uL (0.0-20.8)
== END 2024-08-18 10:41 | disposition home or self-care (01) ==
LOC: ER 21:46
PROVIDERS: General Practice
DX: R53.81 Other malaise (principal); J06.9 Acute upper respiratory infection, unspecified; R50.9 Fever, unspecified; I10 Essential (primary) hypertension; E11.9 Type 2 diabetes mellitus without complications; Z79.84 Long term (current) use of oral hypoglycemic drugs
CPT/HCPCS: 36415; 71045; 96365; 99283; J2543; J3490